=== PATIENT | female | born 1985 | race Caucasian/White ===

== ENCOUNTER 2018-06-18 09:07 | Inpatient (IN) ==
[2018-06-18] MEDS ORDERED: VANCOMYCIN HCL 1,000 MG in SODIUM CHLORIDE 0.9% 250 ML IV STA (10:24)
[2018-06-18] MEDS ORDERED: OXYTOCIN 30 UNITS/500 ML BAG IV PRN ×3 (10:24→16:45)
[2018-06-18] MEDS ORDERED: VANCOMYCIN HCL 1,000 MG in SODIUM CHLORIDE 0.9% 250 ML IV PRN (10:24)
[2018-06-18] MEDS ORDERED: LACTATED RINGER'S 1,000 ML IV PRN ×3 (10:24→14:20)
[2018-06-18] MEDS ORDERED: LACTATED RINGER'S 1,000 ML IV SCH (10:30)
[2018-06-18] MEDS: LABETALOL HCL 100 MG TAB PO PRN ×2 (10:34→17:22)
[2018-06-18 10:41] LABS: Hematocrit (blood only) 37.9 % (37-47); Hemoglobin 12.8 g/dL (12.0-16.0); Mean Corpuscular Volume 85.9 fL (80-100); Mean Platelet Volume 12.5 fL (7.4-10.4); Platelet Count 223 K/uL (130-400); RDW Coefficient of Variation 13.4 % (11.5-14.5); RDW Standard Deviation 42.2 fL (36.4-46.3); Red Blood Count 4.41 M/uL (4.2-5.4)
--- NOTE | 2018-06-18 10:43 | History & Physical Report ---
Date of Service June 18, 2018 Assessment & Plan (1) Uterine contractions at greater than 20 weeks of gestation: 32 yo at 39.3 wks in active labor, GBS+, Allergic to PCN, FHR reassuring HTN: asymptomatic Plan: admit, monitor, Vancomycin for GBS, anticipate (2) Hypertension affecting in third trimester: History of Present Illness Chief Complaint: Contractions Primary Care Provider: Abhilash Snow MD Patient is a 32 yo at 39.3 wks who started to have ctxs at 6 am They have been every 10 min Pain is 7-8/10 No LOF/VB +FM's No DEMPSEY/ Change in vision/ N&V/ Epig or RUQ pain No CP/SOB/ fever/ chills Her has been complicated by 1) GBS+ 2) Depression: on Celexa and stable 3) HTN: now in labor, asymptomatic Allergies Allergy/AdvReac Type Severity Reaction Status Date / Time clavulanic acid Allergy Mild rash Verified 05/29/15 23:25 amoxicillin [From Augmentin] AdvReac Rash Verified 06/18/18 09:52 Home Medications Home Medications Medication Instructions Recorded Confirmed Type citalopram [Celexa] 40 mg PO DAILY #0 tab 05/30/15 06/18/18 History 1 tab-cap PO DAILY 06/18/18 06/18/18 History Patient History Medical History Anxiety Depression GERD (gastroesophageal reflux disease) Hiatal hernia depression Surgical History History of appendectomy History of dilatation and curettage Social History marital status: Feels Safe at Home: Yes Smoking Status: Never smoker Do You Dip or Chew Tobacco: No Second Hand Exposure: Yes Tobacco Cessation Education Requested by Patient: No Hx Alcohol Use: Yes Alcohol type: wine Alcohol Intake Frequency: a few times a month Hx Substance Use: No Preferred Language: Congolese OB History 2 FT 1 SAB [employer]OR History No h/o Chlamyda/ GC, no HSV Review of Systems All systems reviewed & are unremarkable except as noted in HPI & below Physical Exam 2 Vital Signs (Past 24 Hours): Last Vital Signs Temp 36.8 C 06/18/18 09:40 Pulse 71 06/18/18 10:13 BP 152/94 H 06/18/18 10:13 Constitutional: WD/WN, vitals as above well developed, well nourished and comfortable Mild discomfort with ctxs Respiratory: normal respiratory effort, lungs clear to auscultation normal respiratory effort Auscultation: lungs clear to auscultation bilaterally Cardiovascular: RRR, no murmur, no edema Rate/Rhythm: regular rate and regular rhythm Heart Sounds: normal S1 and normal S2 Extremities: + edema (1+/1+edema, DTR 1+/1+, no clonus BL) Gastrointestinal (Abdomen): Abd: soft, NT, gravid Genitourinary: Manual OB Exam: + cervical dilation 6 cm, + cervical effacement 70% and + station -2 OB Exam Monitor Tracing: + category I Monitoring External Monitor 130's, good accels and variability, no decels
--- NOTE | 2018-06-18 10:45 | Obstetrical Progress Note ---
Date of Service June 18, 2018 Subjective Labetalol 100 mg PO was given Physical Exam 2 Vital Signs (Past 24 Hours): Last Vital Signs Temp 36.8 C 06/18/18 09:40 Pulse 80 06/18/18 10:43 BP 167/100 H 06/18/18 10:43
[2018-06-18 10:47] LABS: Mean Corpuscular Hgb Conc 33.8 g/dL (32-36)
[2018-06-18] MEDS ORDERED: ePHEDrine sulfate 50 MG/ML AMP ONE (10:56)
[2018-06-18] MEDS ORDERED: BUPIVACAINE 0.25% 30 ML VIAL ONE (10:56)
[2018-06-18] MEDS ORDERED: fentaNYL 2MCG/ML ROPIV 1.25MG/ML 100 ML BAG EPI ONE (10:57)
[2018-06-18] MEDS ORDERED: CEFAZOLIN 2000MG 2,000 MG/15 ML SYR IV STA (10:57)
[2018-06-18] MEDS ORDERED: fentaNYL citrate 100 MCG/2 ML VIAL ONE (10:57)
[2018-06-18 11:11] LABS: Appearance Urine Clear (Clear); Bilirubin Urine Negative (Negative); Color Urine Yellow; Glucose Urine UA Negative (Negative); Ketones Urine Negative (Negative); Leukocyte Esterase Urine Negative (Negative); Nitrite Urine Negative (Negative); Protein Urine Negative (Negative); Specific Gravity Urine 1.006 (1.000-1.030); Urobilinogen Urine Negative (Negative); pH Urine 6.5 (4.5-7.5)
[2018-06-18] MEDS ORDERED: NALOXONE HCL 1 MG in SODIUM CHLORIDE 0.9% 1000ML 1,000 ML IV PRN (11:11)
[2018-06-18] MEDS ORDERED: NALOXONE HCL 0.4 MG/1 ML VIAL/CARP IV PRN (11:11)
[2018-06-18] MEDS ORDERED: ONDANSETRON INJ 2 MG/ML 2 ML VIAL IV PRN (11:11)
[2018-06-18] MEDS ORDERED: PROMETHAZINE HCL 6.25 MG in SODIUM CHLORIDE 0.9% 50 ML IV PRN (11:11)
[2018-06-18] MEDS ORDERED: ePHEDrine sulfate 50 MG/ML AMP IV PRN (11:11)
[2018-06-18] MEDS ORDERED: fentaNYL 2MCG/ML ROPIV 1.25MG/ML 100 ML BAG EPI PRN (11:11)
[2018-06-18] MEDS ORDERED: NALBUPHINE HCL INJ 10 MG/ML AMP IV PRN (11:11)
[2018-06-18] MEDS ORDERED: DiphenhydrAMINE HCL 50 MG/ML VIAL IV PRN (11:11)
--- NOTE | 2018-06-18 11:11 | Anesthesiology Consultation ---
Date of Service June 18, 2018 Obesity Gestational HTN @39.3 Assessment & Plan (1) Encounter for pre-operative examination: Chart Review Chart Review: Patient NOT seen in Pre Admission Testing and Acceptable Risk for Labor Epidural Consults Requested none ASA ASA2 Proposed Anesthesia Anesthesia Type: Labor Epidural Risk / Benefits Reviewed With: PT / POA / Parent / Guardian, Accepts Plan and Informed Consent Obtained NPO Date Last Intake of Fluids: 06/18/18 Time Last Intake of Fluids: 10:00 Date Last Intake of Solids: 06/18/18 Time Last Intake of Solids: 07:00 History Height/Weight Height: 5 ft 9 in Weight: 113.398 kg Allergies Allergy/AdvReac Type Severity Reaction Status Date / Time clavulanic acid Allergy Mild rash Verified 05/29/15 23:25 amoxicillin [From Augmentin] AdvReac Rash Verified 06/18/18 09:52 Medications Home Medications Medication Instructions Recorded Confirmed Last Taken citalopram [Celexa] 40 mg PO DAILY #0 tab 05/30/15 06/18/18 06/17/18 07:00 1 tab-cap PO DAILY 06/18/18 06/18/18 06/17/18 21:00 Active Medications Generic Name Dose Route Start Last Admin Trade Name Freq PRN Reason Stop Dose Admin Lactated Ringer's 1,000 mls @ 999 mls/hr 06/18/18 10:24 06/18/18 10:59 Lr IV 07/18/18 10:23 999 mls/hr .Q1H1M PRN Infusion (Pre-Anesthesia) Labetalol HCl 100 mg 06/18/18 10:00 06/18/18 10:34 Normodyne PO 07/18/18 09:59 100 mg ONE PRN Administration Blood Pressure - High Past Medical History Medical History Anxiety Depression GERD (gastroesophageal reflux disease) Hiatal hernia depression Past Surgical History Surgical History History of appendectomy History of dilatation and curettage Social History Smoking Status: Never smoker Do You Dip or Chew Tobacco: No Hx Alcohol Use: Yes Alcohol type: wine alcohol intake frequency: a few times a month Hx Substance Use: No substance use type: does not use Physical Exam Vital Signs Last Vital Signs Temp 36.8 C 06/18/18 09:40 Pulse 83 06/18/18 11:07 BP 183/96 H 06/18/18 11:00 Pulse Ox 100 06/18/18 11:07 Constitutional + obese Gravid abdomen ENMT Mouth: no TMJ abnormality Thyromental Distance: > or= 3.5 Finger Breadths Mallampati Class: II tongue ring. removed Neck normal visual inspection Respiratory normal respiratory effort Cardiovascular Rate/Rhythm: regular rate and regular rhythm Neurologic moves all extremities Psychiatric Orientation: alert Testing Laboratory Results 06/18/18 10:20
[2018-06-18 11:42] LABS: Total Protein Urine Random < 5.0 mg/dl (0-11.9)
[2018-06-18 11:52] LABS: Albumin Level 2.4 gm/dl (3.4-5.0); BUN Creatinine Ratio 13.5 (10-20); Calcium 8.8 mg/dl (8.5-10.1); Creatinine Clr Calc Pharmacy 140.1 ml/min; Est GFR (African American) 118.6; Est GFR (Non-African American) 102.3; Potassium 4.2 mmol/L (3.5-5.1)
[2018-06-18 11:56] LABS: Albumin Globulin Ratio 0.5 (0.9-2); Bilirubin,Total 0.4 mg/dl (0.2-1); Globulin 4.6 gm/dl (2.5-4.0)
--- NOTE | 2018-06-18 14:23 | Obstetrical Progress Note ---
Date of Service June 18, 2018 Subjective Patient is reevaluated She feels comfortable now, has epidural Received Cezafolin for GBS VE: 7/ 90%/ -3, bulging bag, head ballotable, SROM'ed during exam, clear FHR categ I [place]: ctxs q 5-6 min Plan to augment wiht pitocin Continue to monitor closely Physical Exam 2 Vital Signs (Past 24 Hours): Last Vital Signs Temp 36.8 C 06/18/18 09:40 Pulse 78 06/18/18 14:18 BP 153/71 H 06/18/18 14:11 Pulse Ox 99 06/18/18 14:18
[2018-06-18] MEDS ORDERED: SUPERCREAM 0.870% 15 GM JAR EXT PRN (16:45)
[2018-06-18] MEDS ORDERED: BENZOCAINE 20% AER SPR 82.5 GM CAN EXT PRN (16:45)
[2018-06-18] MEDS ORDERED: BISACODYL 10 MG SUPP PR PRN (16:45)
[2018-06-18] MEDS ORDERED: DIPHTHERIA/TETANUS/PERTUSSIS 0.5 ML SYR/VIAL IM ONE (16:45)
[2018-06-18] MEDS ORDERED: HYDROCORTISONE ACETATE 25 MG SUPP PR PRN (16:45)
[2018-06-18] MEDS ORDERED: miSOPROStol 200 MCG TAB PR ONE (16:45)
[2018-06-18] MEDS ORDERED: miSOPROStol 200 MCG TAB ONE (16:50)
--- NOTE | 2018-06-18 17:56 | Anesthesiology Progress Note ---
Date of Service June 18, 2018 Anesthesia Post Procedure Vital Signs Vital Signs: Temp Pulse Resp BP Pulse Ox 06/18/18 17:54 84 161/72 H 06/18/18 17:39 77 163/72 H 06/18/18 17:25 75 18 178/99 H 06/18/18 17:23 76 99 06/18/18 17:18 73 97 06/18/18 17:13 72 98 06/18/18 17:10 76 20 178/84 H 06/18/18 17:08 78 98 06/18/18 17:03 78 97 06/18/18 16:58 79 97 06/18/18 16:55 80 18 167/77 H 06/18/18 16:53 81 98 06/18/18 16:48 74 98 06/18/18 16:43 83 97 06/18/18 16:40 81 144/80 H 06/18/18 16:38 87 97 06/18/18 16:33 109 H 100 06/18/18 16:28 82 98 06/18/18 16:23 79 98 06/18/18 16:18 97 H 100 06/18/18 16:13 91 H 100 06/18/18 16:12 88 183/85 H 06/18/18 16:08 83 100 06/18/18 16:03 77 99 06/18/18 15:58 58 L 100 06/18/18 15:56 56 L 156/86 H 06/18/18 15:53 58 L 100 06/18/18 15:48 75 100 06/18/18 15:47 36.5 C 18 06/18/18 15:43 74 99 06/18/18 15:42 70 158/80 H 06/18/18 15:38 69 100 06/18/18 15:33 71 88 L 06/18/18 15:30 72 93 06/18/18 15:28 79 100 06/18/18 15:26 73 155/81 H 06/18/18 15:23 69 98 06/18/18 15:18 72 100 06/18/18 15:13 67 99 06/18/18 15:11 62 148/73 H 06/18/18 15:08 70 99 06/18/18 15:03 60 98 06/18/18 15:00 67 91 06/18/18 14:58 64 99 0225/19 14:56 70 150/79 H 06/18/18 14:53 63 98 06/18/18 14:48 70 99 06/18/18 14:43 68 99 06/18/18 14:42 68 173/81 H 06/18/18 14:38 64 99 06/18/18 14:33 61 99 06/18/18 14:28 70 99 06/18/18 14:27 65 190/84 H 06/18/18 14:23 78 99 06/18/18 14:18 78 99 06/18/18 14:13 69 98 06/18/18 14:11 71 153/71 H 06/18/18 14:08 60 97 06/18/18 14:03 67 99 06/18/18 13:58 75 163/74 H 100 06/18/18 13:53 66 100 06/18/18 13:48 69 100 06/18/18 13:43 68 99 06/18/18 13:42 71 142/67 H 06/18/18 13:38 64 99 06/18/18 13:33 76 99 06/18/18 13:28 69 99 06/18/18 13:26 76 159/99 H 06/18/18 13:23 59 L 99 06/18/18 13:18 74 99 06/18/18 13:13 70 99 06/18/18 13:11 73 154/97 H 06/18/18 13:08 61 98 06/18/18 13:03 74 99 06/18/18 12:58 71 99 06/18/18 12:57 70 151/91 H 06/18/18 12:53 75 99 06/18/18 12:48 73 99 06/18/18 12:43 76 99 06/18/18 12:41 68 167/99 H 06/18/18 12:38 76 99 06/18/18 12:33 76 99 06/18/18 12:28 70 99 06/18/18 12:27 75 166/94 H 06/18/18 12:23 78 99 06/18/18 12:18 69 98 06/18/18 12:13 67 99 06/18/18 12:11 66 135/65 06/18/18 12:08 64 99 06/18/18 12:03 69 99 06/18/18 11:58 69 99 06/18/18 11:57 72 138/72 06/18/18 11:53 72 99 06/18/18 11:48 74 99 06/18/18 11:43 69 99 06/18/18 11:40 73 139/69 06/18/18 11:38 68 99 06/18/18 11:37 71 153/70 H 06/18/18 11:34 75 156/85 H 06/18/18 11:33 75 99 06/18/18 11:31 77 154/70 H 06/18/18 11:28 73 161/83 H 99 06/18/18 11:24 76 164/87 H 06/18/18 11:23 76 99 06/18/18 11:18 86 100 06/18/18 11:07 83 100 06/18/18 11:00 75 183/96 H 06/18/18 10:43 80 167/100 H 06/18/18 10:40 93 H 171/106 H 06/18/18 10:13 71 152/94 H 06/18/18 09:47 68 169/95 H 06/18/18 09:40 36.8 C 06/18/18 09:30 67 170/87 H Pain Intensity Abdomen: Pain Intensity: 0 Notes Mental Status: alert / awake / arousable Patient Amnestic to Procedure: Yes Nausea / Vomiting: adequately controlled Pain: adequately controlled Airway Patency, RR, SpO2: stable & adequate BP & HR: stable & adequate Hydration State: stable & adequate Anesthetic Complications: no major complications apparent
[2018-06-18] MEDS: LABETALOL HCL 100 MG TAB PO SCH ×2 (19:02→21:07)
--- NOTE | 2018-06-18 19:22 | Delivery Summary ---
DATE OF OPERATION: 06/18/2018 TIME OF DELIVERY OF BABY: 1633 p.m. TIME OF DELIVERY OF PLACENTA: 1641 p.m. DETAILS OF DELIVERY: The patient was found to be fully dilated and desired to push. She pushed for about 25 minutes and delivered the head without difficulty. Shoulders were delivered with minimal traction. Baby was handed off to the mother, where mouth and nose were suctioned. Cord was clamped x2 and cut. It was 3 vessels, cord. Cord blood was obtained and vagina and perineum were checked for lacerations. There were no lacerations found. Everything was intact. The placenta was found to be in the vagina, delivered spontaneously as intact and complete. Uterus was explored, found to be empty. Lower segment was cleared of all clots and debris. Fundus was firm. EBL was 100 mL. Mom and baby tolerated the procedure well. Sponge, lap, needle count was correct x2. Baby was a viable male , Apgars 8/9, weight is 3871 grams. No complications happened and I was present during whole procedure. I attest to the content of the Intraoperative Record and any orders documented therein. Any exceptions are noted below. MTDD
[2018-06-18] MEDS ORDERED: Nursing to Pharmacy Communication ONE (20:01)
[2018-06-18] MEDS: DOCUSATE SODIUM 100 MG CAP PO SCH (21:07)
[2018-06-19] MEDS: IBUPROFEN 600 MG TAB PO PRN (05:54)
[2018-06-19 07:36] LABS: Hematocrit (blood only) 33.7 % (37-47); Hemoglobin 11.3 g/dL (12.0-16.0); Mean Corpuscular Hgb Conc 33.5 g/dL (32-36); Mean Corpuscular Volume 85.8 fL (80-100); Mean Platelet Volume 12.4 fL (7.4-10.4); Platelet Count 172 K/uL (130-400); RDW Coefficient of Variation 13.7 % (11.5-14.5); RDW Standard Deviation 42.8 fL (36.4-46.3); Red Blood Count 3.93 M/uL (4.2-5.4)
[2018-06-19] MEDS: PRENATAL VITAMIN 1 TAB PO SCH (08:46)
[2018-06-19] MEDS: DOCUSATE SODIUM 100 MG CAP PO SCH ×2 (08:46→20:59)
[2018-06-19] MEDS: FERROUS SULFATE 325 MG TAB PO SCH (08:46)
[2018-06-19] MEDS: LABETALOL HCL 100 MG TAB PO SCH ×2 (08:47→21:00)
[2018-06-19] MEDS: CITALOPRAM 20 MG TAB PO SCH (08:48)
--- NOTE | 2018-06-19 09:14 | Obstetrical Progress Note ---
Date of Service June 19, 2018 Subjective Patient is seen and examined. She feels well, no complaints. Ambulating without dizziness Voiding without difficulty Tolerating regular diet with out N&V Bleeding is minimal No DEMPSEY/ Change in vision/fever/ chills/ CP/ SOB/ N&V/ Leg pain Breast feeding without problems Vital Signs Temp Pulse Pulse Resp BP BP Pulse Ox 06/19/18 08:01 37.0 C 71 16 108/63 98 06/19/18 07:12 36.7 C 72 16 122/78 95 06/19/18 00:25 36.7 C 75 18 135/79 06/19/18 06/18/18 06/18/18 Range/Units 06:48 10:30 10:30 WBC 11.70 H (4.8-10.8) K/uL RBC 3.93 L (4.2-5.4) M/uL Hgb 11.3 L (12.0-16.0) g/dL Hct 33.7 L (37-47) % MCV 85.8 (80-100) fL MCH 28.8 (25-34) pg MCHC 33.5 (32-36) g/dL RDW Std Deviation 42.8 (36.4-46.3) fL RDW Coeff of Nini 13.7 (11.5-14.5) % Plt Count 172 (130-400) K/uL MPV 12.4 H (7.4-10.4) fL Sodium (136-145) mmol/L Potassium (3.5-5.1) mmol/L Chloride (98-107) mmol/L Carbon Dioxide (21-32) mmol/L Anion Gap (3-11) BUN (7-18) mg/dl Creatinine (0.6-1.2) mg/dl Est Cr Clr Drug Dosing ml/min Est GFR ( Amer) Est GFR (Non-Af Amer) BUN/Creatinine Ratio (10-20) Glucose (70-99) mg/dl Calcium (8.5-10.1) mg/dl Total Bilirubin (0.2-1) mg/dl AST (15-37) U/L ALT (12-78) U/L Alkaline Phosphatase (45-117) U/L Lactate Dehydrogenase (84-246) U/L Total Protein (6.4-8.2) gm/dl Albumin (3.4-5.0) gm/dl Globulin (2.5-4.0) gm/dl Albumin/Globulin Ratio (0.9-2) Urine Color Yellow Urine Appearance Clear (Clear) Urine pH 6.5 (4.5-7.5) Ur Specific [place] 1.006 (1.000-1.030) Urine Protein Negative (Negative) Urine Glucose (UA) Negative (Negative) Urine Ketones Negative (Negative) Urine Blood Negative (Negative) Urine Nitrite Negative (Negative) Urine Bilirubin Negative (Negative) Urine Urobilinogen Negative (Negative) Ur Leukocyte Esterase Negative (Negative) Ur Random Creatinine 32.0 mg/dl U Random Total Protein < 5.0 (0-11.9) mg/dl Protein/Creatinin Ratio TNP Blood Type Antibody Screen 06/18/18 06/18/18 06/18/18 Range/Units 10:24 10:20 10:20 WBC (4.8-10.8) K/uL RBC (4.2-5.4) M/uL Hgb (12.0-16.0) g/dL Hct (37-47) % MCV (80-100) fL MCH (25-34) pg MCHC (32-36) g/dL RDW Std Deviation (36.4-46.3) fL RDW Coeff of Nini (11.5-14.5) % Plt Count (130-400) K/uL MPV (7.4-10.4) fL Sodium 138 (136-145) mmol/L Potassium 4.2 (3.5-5.1) mmol/L Chloride 107 (98-107) mmol/L Carbon Dioxide 22 (21-32) mmol/L Anion Gap 9.0 (3-11) BUN 10 (7-18) mg/dl Creatinine 0.76 (0.6-1.2) mg/dl Est Cr Clr Drug Dosing 140.1 ml/min Est GFR ( Amer) 118.6 Est GFR (Non-Af Amer) 102.3 BUN/Creatinine Ratio 13.5 (10-20) Glucose 90 (70-99) mg/dl Calcium 8.8 (8.5-10.1) mg/dl Total Bilirubin 0.4 (0.2-1) mg/dl AST 33 (15-37) U/L ALT 44 (12-78) U/L Alkaline Phosphatase 149 H (45-117) U/L Lactate Dehydrogenase 187 (84-246) U/L Total Protein 7.0 (6.4-8.2) gm/dl Albumin 2.4 L (3.4-5.0) gm/dl Globulin 4.6 H (2.5-4.0) gm/dl Albumin/Globulin Ratio 0.5 L (0.9-2) Urine Color Urine Appearance (Clear) Urine pH (4.5-7.5) Ur Specific [place] (1.000-1.030) Urine Protein (Negative) Urine Glucose (UA) (Negative) Urine Ketones (Negative) Urine Blood (Negative) Urine Nitrite (Negative) Urine Bilirubin (Negative) Urine Urobilinogen (Negative) Ur Leukocyte Esterase (Negative) Ur Random Creatinine mg/dl U Random Total Protein (0-11.9) mg/dl Protein/Creatinin Ratio Blood Type A Positive Antibody Screen NEGATIVE 06/18/18 Range/Units 10:20 WBC 14.20 H (4.8-10.8) K/uL RBC 4.41 (4.2-5.4) M/uL Hgb 12.8 (12.0-16.0) g/dL Hct 37.9 (37-47) % MCV 85.9 (80-100) fL MCH 29.0 (25-34) pg MCHC 33.8 (32-36) g/dL RDW Std Deviation 42.2 (36.4-46.3) fL RDW Coeff of Nini 13.4 (11.5-14.5) % Plt Count 223 (130-400) K/uL MPV 12.5 H (7.4-10.4) fL Sodium (136-145) mmol/L Potassium (3.5-5.1) mmol/L Chloride (98-107) mmol/L Carbon Dioxide (21-32) mmol/L Anion Gap (3-11) BUN (7-18) mg/dl Creatinine (0.6-1.2) mg/dl Est Cr Clr Drug Dosing ml/min Est GFR ( Amer) Est GFR (Non-Af Amer) BUN/Creatinine Ratio (10-20) Glucose (70-99) mg/dl Calcium (8.5-10.1) mg/dl Total Bilirubin (0.2-1) mg/dl AST (15-37) U/L ALT (12-78) U/L Alkaline Phosphatase (45-117) U/L Lactate Dehydrogenase (84-246) U/L Total Protein (6.4-8.2) gm/dl Albumin (3.4-5.0) gm/dl Globulin (2.5-4.0) gm/dl Albumin/Globulin Ratio (0.9-2) Urine Color Urine Appearance (Clear) Urine pH (4.5-7.5) Ur Specific [place] (1.000-1.030) Urine Protein (Negative) Urine Glucose (UA) (Negative) Urine Ketones (Negative) Urine Blood (Negative) Urine Nitrite (Negative) Urine Bilirubin (Negative) Urine Urobilinogen (Negative) Ur Leukocyte Esterase (Negative) Ur Random Creatinine mg/dl U Random Total Protein (0-11.9) mg/dl Protein/Creatinin Ratio Blood Type Antibody Screen PE: General: Alert, orientedx3, NAD Abd: soft, NT, fundus firm, below Umbilicus Perineum intact, Lochia rubra minimal Ext; NT, no edema AP: 32 yo s/p , ppd# 1 VSS Afebrile doing well On Labetalol Continue routine care All questions were answered D/C home tomorrow Physical Exam 2 Vital Signs (Past 24 Hours): Last Vital Signs Temp 37.0 C 06/19/18 08:01 Pulse 71 06/19/18 08:01 Resp 16 06/19/18 08:01 BP 108/63 06/19/18 08:01 Pulse Ox 98 06/19/18 08:01
[2018-06-19] MEDS: ACETAMINOPHEN 325 MG TAB PO PRN (13:48)
[2018-06-19] MEDS ORDERED: BISACODYL 5 MG TABEC PO SCH (20:00)
[2018-06-20 07:31] LABS: Hematocrit (blood only) 32.5 % (37-47); Hemoglobin 10.8 g/dL (12.0-16.0)
[2018-06-20] MEDS: CITALOPRAM 20 MG TAB PO SCH (08:13)
[2018-06-20] MEDS: FERROUS SULFATE 325 MG TAB PO SCH (08:14)
[2018-06-20] MEDS: DOCUSATE SODIUM 100 MG CAP PO SCH (08:15)
[2018-06-20] MEDS: LABETALOL HCL 100 MG TAB PO SCH (08:15)
[2018-06-20] MEDS: PRENATAL VITAMIN 1 TAB PO SCH (08:16)
[2018-06-20] MEDS: ACETAMINOPHEN 325 MG TAB PO PRN (08:18)
--- NOTE | 2018-06-20 10:41 | Obstetrical Progress Note ---
Date of Service June 20, 2018 Subjective doing well no pain or bleeding Physical Exam Vital Signs (Past 24 Hours): Last Vital Signs Temp 36.9 C 06/19/18 23:15 Pulse 73 06/19/18 23:15 Resp 18 06/19/18 23:15 BP 133/72 06/19/18 23:15 Pulse Ox 97 06/19/18 23:15 Gastrointestinal (Abdomen): normal bowel sounds, soft, nontender, no hepatosplenomegaly Percussion/Palpation: abdomen soft Results & Data Laboratory Results Laboratory Results - last 48 hr 06/18/18 06/18/18 06/18/18 10:20 10:20 10:20 WBC 14.20 H RBC 4.41 Hgb 12.8 Hct 37.9 MCV 85.9 MCH 29.0 MCHC 33.8 RDW Std Deviation 42.2 RDW Coeff of Nini 13.4 Plt Count 223 MPV 12.5 H Sodium 138 Potassium 4.2 Chloride 107 Carbon Dioxide 22 Anion Gap 9.0 BUN 10 Creatinine 0.76 Est Cr Clr Drug Dosing 140.1 Est GFR ( Amer) 118.6 Est GFR (Non-Af Amer) 102.3 BUN/Creatinine Ratio 13.5 Glucose 90 Calcium 8.8 Total Bilirubin 0.4 AST 33 ALT 44 Alkaline Phosphatase 149 H Lactate Dehydrogenase 187 Total Protein 7.0 Albumin 2.4 L Globulin 4.6 H Albumin/Globulin Ratio 0.5 L Urine Color Urine Appearance Urine pH Ur Specific [place] Urine Protein Urine Glucose (UA) Urine Ketones Urine Blood Urine Nitrite Urine Bilirubin Urine Urobilinogen Ur Leukocyte Esterase Ur Random Creatinine U Random Total Protein Protein/Creatinin Ratio Blood Type Antibody Screen 06/18/18 06/18/18 06/18/18 10:24 10:30 10:30 WBC RBC Hgb Hct MCV MCH MCHC RDW Std Deviation RDW Coeff of Nini Plt Count MPV Sodium Potassium Chloride Carbon Dioxide Anion Gap BUN Creatinine Est Cr Clr Drug Dosing Est GFR ( Amer) Est GFR (Non-Af Amer) BUN/Creatinine Ratio Glucose Calcium Total Bilirubin AST ALT Alkaline Phosphatase Lactate Dehydrogenase Total Protein Albumin Globulin Albumin/Globulin Ratio Urine Color Yellow Urine Appearance Clear Urine pH 6.5 Ur Specific [place] 1.006 Urine Protein Negative Urine Glucose (UA) Negative Urine Ketones Negative Urine Blood Negative Urine Nitrite Negative Urine Bilirubin Negative Urine Urobilinogen Negative Ur Leukocyte Esterase Negative Ur Random Creatinine 32.0 U Random Total Protein < 5.0 Protein/Creatinin Ratio TNP Blood Type A Positive Antibody Screen NEGATIVE 06/19/18 06/20/18 06:48 07:02 WBC 11.70 H RBC 3.93 L Hgb 11.3 L 10.8 L Hct 33.7 L 32.5 L MCV 85.8 MCH 28.8 MCHC 33.5 RDW Std Deviation 42.8 RDW Coeff of Nini 13.7 Plt Count 172 MPV 12.4 H Sodium Potassium Chloride Carbon Dioxide Anion Gap BUN Creatinine Est Cr Clr Drug Dosing Est GFR ( Amer) Est GFR (Non-Af Amer) BUN/Creatinine Ratio Glucose Calcium Total Bilirubin AST ALT Alkaline Phosphatase Lactate Dehydrogenase Total Protein Albumin Globulin Albumin/Globulin Ratio Urine Color Urine Appearance Urine pH Ur Specific [place] Urine Protein Urine Glucose (UA) Urine Ketones Urine Blood Urine Nitrite Urine Bilirubin Urine Urobilinogen Ur Leukocyte Esterase Ur Random Creatinine U Random Total Protein Protein/Creatinin Ratio Blood Type Antibody Screen
[2018-06-20] MEDS: IBUPROFEN 600 MG TAB PO PRN (12:36)
== END 2018-06-20 17:30 | disposition home or self-care (01) | DRG 806 ==
LOC: OPB 09:07 → 4S1 09:09 → 4S2 20:07